=== PATIENT | male | born 1985 | race Caucasian/White ===

== ENCOUNTER 2016-11-07 01:00 | Inpatient (IN) | payer OTHER ==
[~2016-11-07] VITALS: Ht 182.9 cm; Wt 51.7 kg
--- NOTE | ~2016-11-07 | DS ---
Unit #: [id number] #: [id number] Patient: JUSTEN PINEDO [id number] [place] [address] [id number] I MR#: [id number] NAME: JUSTEN PINEDO ROOM: [facility] Age: 31 Sex: M Admission Date: 11/07/2016 : 1985 Discharge Date: 11/10/2016 Attending Physician: Barbara Antonio M.D. Primary Care Physician: Rudy Pro M.D. DISCHARGE SUMMARY IDENTIFICATION DATA Mr. Pinedo is a 31-year-old single white male with history of mood disorder who was self-referred to the hospital. DISCHARGE DIAGNOSES PSYCHIATRIC: Bipolar disorder, most recent episode, depressed, r recurrent, moderate, without psychotic features. MEDICAL: None. STRESSORS: Moderate psychosocial stressors. HISTORY OF PRESENT ILLNESS Same as in initial psychiatric evaluation. PAST PSYCHIATRIC HISTORY Same as in initial psychiatric evaluation. PAST MEDICAL HISTORY Same as in initial psychiatric evaluation. HOSPITAL COURSE The patient was admitted to the adult psychiatric unit at [facility] and was oriented to the hospital environment. Routine p.r.n. medications were initiated, and he was started back on his home medications, and medications were adjusted as the patient was seen to be exhibiting (1) __ psychosis, agitation, aggression, and hostility, and was seen to be a significant threat to himself and others. Meanwhile, he was taking the medications regularly and was tolerating them fairly well and was able to show decent therapeutic response with improvement in his anger and aggression. As such it was decided that he will be discharged home. We will continue treatment on an outpatient basis. DISCHARGE MEDICATIONS 1. Celexa 20 mg a day for depression. 2. Risperdal 1 mg at bedtime for bipolar. 3. [place] 300 mg twice a day for bipolar. CONDITION AT DISCHARGE Stable. PROGNOSIS Fair. Unit #: [id number] #: [id number] Patient: JUSTEN PINEDO Dictated by... Barbara Antonio M.D. IAA/bzg TD: 11/10/2016 06:56 JOB #: [id number] DISCHARGE SUMMARY Page 1 of 1 X Barbara Antonio MD DISCHARGE SUMMARY
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
--- NOTE | ~2016-11-07 | PN ---
Unit #: [id number] #: [id number] Patient: JUSTEN PINEDO [id number] [facility] [address] [place] [address] [id number] I MR#: [id number] NAME: JUSTEN PINEDO ROOM: P121 Age: 31 Sex: M Admission Date: 11/07/2016 : 1985 Attending Physician: Barbara Antonio M.D. Admitting Physician: Barbara Antonio M.D. Primary Care Physician: Janina Herclues PROGRESS NOTES DATE OF SERVICE 11/09/2016 DISCUSSION Mr. Pinedo is a 31-year-old white male with mood disorder who was seen today. Chart was reviewed and case was discussed with the staff. He appears to be calmer and compliant with treatment recommendations and has been taking the medications and has been going to therapy groups and does not appear to be exhibiting as much agitation and aggression as he has before. MENTAL STATUS EXAMINATION Young white male who is casually dressed with fair personal hygiene, appears to be in no acute distress or discomfort. He was awake and alert with intact orientation. His mood is anxious with congruent affect. Speech is slow and goal-directed. He denies any suicidal or homicidal ideations. His insight and judgment remain slightly impaired. TREATMENT PLAN 1. We will continue him on his current medications and treatment protocol. We will monitor his response to the medications and make further adjustments as needed. 2. We will continue to follow up. Dictated by... Janina Donovan/gautamg TD: 11/09/2016 09:07 JOB #: [id number] Unit #: [id number] #: [id number] Patient: JUSTEN PINEDOROSALVA PROGRESS NOTES Page 1 of 1 X Barbara Antonio MD PROGRESS NOTE
--- NOTE | ~2016-11-07 | HP ---
Unit #: [id number] #: [id number] Patient: BILL ZIMMER [id number] [place] [address] [id number] I MR#: [id number] NAME: BILL ZIMMER ROOM: P121 Age: 31 Sex: M Admission Date: 11/07/2016 : 1985 Attending Physician: Barbara Antonio M.D. Admitting Physician: Barbara Antonio M.D. Primary Care Physician: Rudy Pro M.D. HISTORY AND PHYSICAL HISTORY OF PRESENT ILLNESS Bill is a 31 year old admitted to [address] [place] [address] with depression and verbalizing wanting to hurt himself. PAST MEDICAL HISTORY History of illicit substance abuse. PAST SURGICAL HISTORY Nothing reported. ALLERGIES No known drug allergies. SOCIAL HISTORY Smokes 1/2 pack per day. Drinks alcohol on occasion. Has a history of illicit substance abuse to include cocaine, heroin and methamphetamine. FAMILY HISTORY Medically noncontributory. REVIEW OF SYSTEMS CONSTITUTIONAL: No fever or chills. HEENT: Denies any sore throat, ear pain or runny nose. CARDIOVASCULAR: Denies chest pain, irregular heart rhythm or palpitations. CHEST: Denies shortness of breath or cough. No hemoptysis. GASTROINTESTINAL: Denies nausea, vomiting, diarrhea or chronic constipation. ENDOCRINE: Denies history of increased thirst or urination. No recent significant weight loss or gain. GENITOURINARY: Denies dysuria, frequency, or hematuria. SKIN: Denies any rashes. HEMATOLOGIC: Denies history of increased bleeding or bruising. MUSCULOSKELETAL: Denies any hot, swollen joints. No generalized muscle pain. NEUROLOGIC: Denies problems with vision or speech. No frequent, severe headaches. No numbness, tingling or weakness in any extremities. Denies loss of bladder or bowel control. CURRENT MEDICATIONS 1. Risperdal 1 mg q.h.s. 2. Celexa 20 mg q.h.s. 3. [place] 300 mg b.i.d. 4. Thorazine 50 mg q. 6 hours p.r.n. Unit #: [id number] #: [id number] Patient: BILL ZIMMER 5. Nicotine patch 7 mg daily. 6. Vistaril p.r.n. 7. Desyrel p.r.n. 8. Milk of Magnesia p.r.n. 9. Maalox p.r.n. 10. Tylenol p.r.n. PHYSICAL EXAMINATION GENERAL: Alert, well-nourished, in no apparent distress. VITAL SIGNS: Blood pressure 110/70, heart rate 80, respirations 16, temperature 98.6. WEIGHT: 114. HEIGHT: 6 feet 0 inches. SKIN: Warm and dry without rash or lesion. HEENT: Normocephalic. TMs not viewed. Oral and nasal passages clear. Conjunctivae clear. PERRLA. EOMs intact. NECK: Supple without lymphadenopathy or thyromegaly. HEART: Regular rate and rhythm without murmur. LUNGS: Clear. ABDOMEN: Soft, nontender. : Not done. EXTREMITIES: No evidence of cyanosis, clubbing or edema. Moves all without focal deficit. NEUROLOGICAL: Grossly within normal limits. Cranial Nerves: II: Visual bhatt are intact. III, IV AND : Extraocular movements are intact. Pupils are equal, round and reactive to light. V: Facial sensation is grossly normal. VII: Facial movements and expression are normal. VIII: Auditory acuity grossly intact. IX, X: Uvula is midline. Phonation is normal. XI: Patient shrugs shoulders and turns head normally. XII: Tongue protrudes in the midline. Sensory and Motor Function: Sensory and motor sensation is grossly normal. Motor: moves all extremities well. Coordination: Gait is normal. Deep Tendon Reflexes: Intact. IMPRESSION Psychiatric admission. RECOMMENDATIONS PSYCHIATRIC: Per psychiatrist. MEDICAL: See no contraindication to participate in facility's activities. MEDICAL PROGNOSIS Good. MEDICAL CONDITION Stable. Dictated by... Kary Stern P.A.-C. for Janina Rodriguez/nishant TD: 11/07/2016 15:50 Unit #: [id number] #: [id number] Patient: BILL ZIMMER JOB #: [id number] HISTORY AND PHYSICAL Page 1 of 1 X Kary Stern HISTORY AND PHYSICAL
--- NOTE | ~2016-11-07 | PN ---
Unit #: [id number] #: [id number] Patient: JUSTEN PINEDO [id number] [facility] [address] [place] [address] [id number] I MR#: [id number] NAME: JUSTEN PINEDO ROOM: P121 Age: 31 Sex: M Admission Date: 11/07/2016 : 1985 Attending Physician: Barbara Antonio M.D. Admitting Physician: Barbara Antonio M.D. Primary Care Physician: Janina Hercules PROGRESS NOTES DATE 11/08/2016 DISCUSSION Mr. Pinedo is a 31-year-old white male with mood disorder who was seen today and chart was reviewed and case was discussed with the staff. Patient has been very agitated, irritable, aggressive and hostile and showing episodes of verbal and physical aggression and refusing to cooperate and participate in treatment related activities. MENTAL STATUS EXAMINATION Young white male who was casually dressed with fair personal hygiene and appears to be in no acute distress or discomfort. He was awake and alert with intact orientation. His mood was anxious with congruent affect. His speech is slow and tangential. His thought processes were disorganized with looseness of associations and flight of ideas. His insight and judgement remains . TREATMENT PLAN 1. Will continue on his current medications and treatment protocol. Will response and make further adjustments as needed. 2. Will continue to follow up. Dictated by... Janina Donovan/nishant TD: 11/08/2016 18:27 JOB #: [id number] Unit #: [id number] #: [id number] Patient: JUSTEN PINEDO PROGRESS NOTES Page 1 of 1 X Barbara Antonio MD X PROGRESS NOTE
--- NOTE | ~2016-11-07 | A ---
[facility] Nutrition Therapy DATE: 11/08/16 Patient: JUSTEN UMANA MESHA Physician: YAA Address: [address] [place] [address] Room/Bed: [address], Zip: [place] [address] Admit Date: 11/07/16 Date of : [birth year] Height: 6 0 Weight: [phone] NUTRITIONAL ASSESSMENT: REASON: LOW BMI PATIENT ADMITTED FOR SI, DEPRESSION, AND AUDIO/VISUAL HALLUCINATIONS PMH: HX ILLICIT SUBSTANCE ABUSE Anthropometrics: HT: [facility] HT IS 72", NSG REPORTS HT IS AROUND 67-68". PATIENT UNCOOPERATIVE AND NURSING UNABLE TO OBTAIN ACCURATE HT ATT. WT: 114#, BMI: 17.3-17.9? Labs: 11/07/16- BUN: 30, ALL OTHER NUTRITIONAL LABS WNL Meds: RISPERDAL, CELEXA, LITHIUM, VISTARIL, DESYREL Assessment: PATIENT IS A 31 Y/O MALE ADMITTED FOR SI, DEPRESSION, AND A/V HALLUCINATIONS. PATIENT IS CURRENTLY UNEMPLOYED, HOMLESS, SMOKES 1/2 PPD, HAS OCCASIONAL ETOH AND MARIJUANA USE, AND A HX OF COCAINE, HEROIN, AND METHAMPHETAMINE USE. HE WAS ALSO RELEASED FROM [facility] IN MAY AFTER SERVING 24 MONTHS. DURING NEEDS ASSESSMENT PATIENT STATED A POOR APPETITE WITH AN UNKNOWN AMOUNT OF WEIGHT LOSS, AND HE HAS ONLY BEEN SLEEPING 20 MINS / DAY. NURSING REPORTS GOOD PO INTAKES. PATIENT HAS A HX OF MULTIPLE INPATIENT PSYCH HOSPITALIZATIONS, HOWEVER HE HAS NOT BEEN ON ANY PSYCH MEDICATIONS IN SEVERAL YEARS. CURRENT PSYCH MEDS MAY CAUSE FLUCTUATIONS IN PATIENT'S APPETITE AND WEIGHT. PATIENT'S HT IN [facility] WAS LISTED 72", HOWEVER PATIENT'S NURSE STATED HE WAS MAYBE ONLY 67-68" TALL. NURSING STAFF UNABLE TO OBTAIN AN EXACT HEIGHT ATT D/T PATIENT BEING UNCOOPERATIVE THIS MORNING. HE IS NOTED BEING AGGRESSIVE AND ARGUMENTATIVE UPON ADMIT. IT IS UNCLEAR ATT HOW LOW PATIENT'S BMI IS BUT HE DOES APPEAR TO BE THIN. HE IS CURRENTLY ON A REGULAR DIET. THERE ARE NO SKIN OR GI ISSUES NOTED ATT. Dx: INADEQUATE NUTRIENT INTAKE R/T CURRENT CONDITIONS, DEPRESSION AEB LOW BMI? Intervention: REGULAR DIET, MEDS PER MD, PSYCH Monitoring, Evaluation and Goals: 1. ADEQUATE PO INTAKES >50-75% OF MEALS 2. PREVENT, CORRECT MICRO/MACRO NUTRIENT DEFICIENCIES 3. WEIGHT; PROMOTE A STEADY WEIGHT GAIN TOWARDS A HEALTHY BMI OF 19-25 MONITOR: WEIGHTS, LABS, PO/FLUID INTAKES Recommendations: [facility] Therapy DATE: 11/08/16 Patient: JUSTEN UMANA MESHA Physician: YAA Address: [address] [place] [address] Room/Bed: P121-2 [facility], Zip: [place] [address] Admit Date: 11/07/16 Date of : [birth year] Height: 6 0 Weight: [phone] 1. CONTINUE REGULAR DIET TOLERATED. OFFER SNACKS BETWEEN MEALS. WILL INCREASE ENTREES TO LARGER PORTIONS D/T PATIENT'S NEED FOR AN INCREASED CALORIC INTAKE AND HE HAS GOOD PO INTAKES 2. ENCOURAGE ADEQUATE PO AND FLUID INTAKES 3. OBTAIN NEW HEIGHT AND WEIGHT ONCE PATIENT IS MORE COOPERATIVE. CONTINUE TO OBTAIN WEIGHTS ROUTINELY (EVERY 3-4 DAYS) 4. IF PO INTAKES ARE BELOW 50% OF MEALS PLEASE ORDER ENSURE BID TO PROMOTE ADEQUATE KCAL AND PROTEIN INTAKES RD TO F/U PER PROTOCOL AND PRN R/T PATIENT MILDLY COMPROMISED Respectfully, RAFA MARRERO, RD, LD [facility] cc: client file
--- NOTE | ~2016-11-07 | CR169 ---
[facility] A Service of [facility] & [facility] RADIOLOGY TEXT RESULTS PATIENT: JUSTEN ZIMMER LOCATION: P1S P121-2 : [birth year] UNIT #: [id number] AGE: [address]: Barbara Antonio MD SEX: M ORDER DR: [id number] [facility] [address] [facility]. [place], [place] [address] [id number] MR#: [id number] Acc #: [id number] NAME: JUSTEN ZIMMER : 1985 SEX: M STUDY DATE/TIME: 11/09/2016 17:56 UNIT: P1S ROOM: P121 STUDY DESCRIPTION: CR Knee 2 Views Lt Attending Physician: Barbara Antonio M.D. Ordering Physician: Barbara Antonio M.D. Primary Care Physician: Rudy Pro M.D. MEDICAL IMAGING REPORT This report is preliminary unless electronic signature is present EXAM Left knee, two views. HISTORY Patient has left knee stiffness after an injury today when he fell. Hurts to bend the knee. COMMENT Two views of the left knee are reviewed. FINDINGS Probably a small suprapatellar joint effusion. No acute fracture, dislocation or radiopaque foreign body. IMPRESSION Suspect a small suprapatellar joint effusion, otherwise, negative plane film assessment, left knee. Dictated by... Kamilah Akers M.D. THIS IS AN ELECTRONICALLY VERIFIED REPORT Kamilah Akers M.D. at 11/10/2016 7:10 AM SHIRA/maida TD: 11/09/2016 22:55 JOB #: [id number] MEDICAL IMAGING REPORT Page 1 of 1 COPY
[~2016-11-07 01:00] MED LIST: AMOXICILLIN PO; CODEINE PO; IBUPROFEN PO
[2016-11-07 09:39] LABS: BASOPHIL# 0.1 X10e3 (0-0.3); BASOPHIL% 0.9 % (0-2.5); EOSINOPHIL# 0.1 X10e3 (0-0.7); EOSINOPHIL% 1.2 % (0.0-7.0); HEMATOCRIT 43.7 % (38.0-50.0); HEMOGLOBIN 15.2 gm/dL (13.0-16.0); LYMPHOCYTE# 2.4 X10e3 (1.0-3.5); LYMPHOCYTE% 20.1 % (17.0-45.0); MEAN CELL VOLUME 83.7 FL (83-96); MEAN CORPUSCULAR HEMOGLOBIN 29.1 PG (28-34); MEAN CORPUSCULAR HGB CONC 34.8 g/dL (30-36); MEAN PLATELET VOLUME 9.4 FL (6.5-11.5); MONOCYTE% 8.2 % (3.0-12.0); NEUTROPHIL# 8.2 X10e3 (1.5-7.1); NEUTROPHIL% 69.6 % (40-75); PLATELET COUNT 242 X10e3 (140-420); RED BLOOD COUNT 5.22 X10e (3.90-5.60); RED CELL DISTRIBUTION WIDTH 13.7 % (11.0-15.5); WHITE BLOOD COUNT 11.8 X10e3 (4.0-10.5)
[2016-11-07 09:43] LABS: DIFF IND NO
[2016-11-07 09:55] LABS: ALBUMIN SERUM 4.3 g/dL (3.5-5.0); BILIRUBIN,TOTAL 0.9 mg/dL (0.2-2.0); BUN/CREATININE RATIO 27.27; CALCIUM SERUM 9.3 mg/dL (8.4-10.2); CREATININE SERUM 1.1 mg/dL (0.6-1.4); POTASSIUM 4.1 mmol/L (3.5-5.1); PROTEIN TOTAL SERUM 7.3 g/dL (6.0-8.3)
== END 2016-11-10 10:58 | disposition home or self-care (01) | DRG 885 ==
LOC: P1S 04:51
PROVIDERS: Psychiatry & Neurology Psychiatry
DX: F31.32 Bipolar disorder, current episode depressed, moderate (principal); R45.851 Suicidal ideations; F17.210 Nicotine dependence, cigarettes, uncomplicated; F12.10 Cannabis abuse, uncomplicated
CPT/HCPCS: 73560; 80053; 82947; 85025; J1200; J1630

== ENCOUNTER 2016-11-16 00:09 | Emergency (ER) | payer OTHER ==
[~2016-11-16] VITALS: Ht 182.9 cm; Wt 68.0 kg
== END 2016-11-16 03:14 | disposition left against medical advice (07) ==
LOC: CED 00:09
DX: Z53.21 Procedure and treatment not carried out due to patient leaving prior to being seen by health care provider (principal)

== ENCOUNTER 2016-12-27 16:00 | Emergency (ER) | payer OTHER ==
[~2016-12-27] VITALS: Ht 182.9 cm; Wt 65.8 kg
== END 2016-12-27 17:15 | disposition home or self-care (01) ==
LOC: CFTX 16:00 → CED 16:00 → CFTX 17:08
DX: Z76.0 Encounter for issue of repeat prescription (principal); F31.9 Bipolar disorder, unspecified; F17.210 Nicotine dependence, cigarettes, uncomplicated
CPT/HCPCS: 99281